=== PATIENT | female | born 1955 | race Caucasian/White ===

== ENCOUNTER → 2022-08-30 | Outpatient (CLI) | payer OTHER, SELFPAY ==
--- NOTE | 2022-08-30 07:06 | ECHOD_ITS ---
Reason For Study: Chest Pain Procedure This was a 2D Doppler, Color Flow transthoracic echocardiogram. Exam performed in department. Left Ventricle Normal LV size. Left ventricular systolic function is normal. The estimated ejection fraction is 60 %. Stage 1 diastolic dysfunction. No regional wall motion abnormalities noted. Right Ventricle Normal RV size. Normal systolic function. Atria Normal left atrium. Normal right atrium. Mitral Valve Normal mitral valve. Tricuspid Valve Normal tricuspid valve. Mild tricuspid valve insufficiency. Pulmonary artery systolic pressure is 24 mmHg. Aortic Valve Normal aortic valve. Trisinus/trileaflet aortic valve. Pulmonic Valve Normal pulmonic valve. Great Vessels Normal aortic root. The pulmonary artery is normal size. Normal inferior vena cava. Pericardium/Pleural No pericardial effusion. MMode/2D Measurements & Calculations LVIDd: 4.4 cm IVSd: 0.77 cm Ao root diam: 3.0 cm LVIDs: 2.7 cm LVPWd: 0.91 cm LA dimension: 3.1 cm RVDd: 3.2 cm FS: 38.5 % LAV(MOD-bp): 36.5 ml LA A4 area: 13.7 cm2 RA A4 area: 12.3 cm2 LAV(MOD-bp) Indexed: 20.8 ml/m2 LAV(MOD-sp2): 35.7 ml LAV(MOD-sp4): 33.4 ml Time Measurements MV dec time: 0.22 sec Doppler Measurements & Calculations MV E max ghassan: 73.9 cm/sec Lat Peak E' Ghassan: 10.8 cm/sec Med Peak E' Ghassan: 10.2 cm/sec MV A max ghassan: 96.4 cm/sec E/E' lat: 6.8 E/E' med: 7.3 MV E/A: 0.77 MV V2 max: 114.3 cm/sec MV P1/2t max ghassan: 102.0 cm/sec Ao V2 max: 126.2 cm/sec MV max P.2 mmHg MV P1/2t: 85.7 msec Ao max P.4 mmHg MV V2 mean: 62.6 cm/sec MV dec slope: 348.6 cm/sec2 Ao V2 mean: 83.5 cm/sec MV mean P.9 mmHg MVA(P1/2t): 2.6 cm2 Ao mean P.3 mmHg MV V2 VTI: 36.2 cm Ao V2 VTI: 28.1 cm LV V1 max: 106.1 cm/sec PA V2 max: 114.4 cm/sec TR max ghassan: 224.5 cm/sec LV V1 max P.5 mmHg PA V2 mean: 75.9 cm/sec TR max P.2 mmHg LV V1 mean P.3 mmHg LV V1 mean: 70.1 cm/sec LV V1 VTI: 23.1 cm ECHO/Echo Complete Interpretation Summary Normal LV size. Left ventricular systolic function is normal. The estimated ejection fraction is 60 %. Stage 1 diastolic dysfunction. Pulmonary artery systolic pressure is 24 mmHg. Ordering Physician: Ron Starr Referring Physician: Leni Baker M.D. Performed By: Oc Villagran RCS
--- NOTE | 2022-08-30 18:44 | STRESSREP ---
Stress Test Report Exercise myocardial perfusion stress test. 66-year-old lady with a history of chest pain. Stress protocol: Resting EKG demonstrates sinus bradycardia with a rate of 58 bpm normal intervals are noted resting blood pressure is 122/78 mmHg. The patient exercised according to regular Augusto protocol for total duration of 4 minutes and 16 seconds attaining a maximum heart rate of 144 bpm which was 92% of max impacted heart rate and a maximum workload of 7 metabolic equivalents. The patient maintained sinus rhythm throughout the recording. At rest there were no ST or T wave changes noted suggest ischemia and at peak exercise upsloping ST changes only were noted with did not meet the criteria for ischemia. No clinical angina was noted the test was terminated due to leg discomfort. The peak blood pressure was noted to be 160/68 mmHg. No arrhythmias were noted. Myocardial perfusion protocol. 10.9 mCi of technetium 99m sestamibi was injected at rest. The patient exercised according to regular Augusto protocol and at peak exercise 33.5 mCi of technetium 99m sestamibi was injected stress images were obtained stress and rest images were reconstructed in comparing the short axis vertical long and horizontal long axis. Gated images were also obtained to Perfusion SPECT analysis: Review of the stress images demonstrate normal uptake of tracer noted in all areas of the myocardium. The resting images similar demonstrate normal uptake of tracer noted in all areas of the myocardium. No areas of reversibility are noted suggest ischemia no previous infarct is noted. Gated SPECT analysis: The gated ejection fraction is 82%. Conclusion: Normal exercise myocardial perfusion stress test at a moderate workload. Preserved ejection fraction.
== END | disposition home or self-care (01) ==
LOC: CVS 07:05
PROVIDERS: PCP Internal Medicine; Referring Provider Internal Medicine Cardiovascular Disease; Visit Provider Internal Medicine Cardiovascular Disease
DX: R07.9 Chest pain, unspecified (principal)
CPT/HCPCS: 78452; 93017; 93306; A9500; A4216

== ENCOUNTER 2024-06-07 08:04 | Emergency (ER) | payer OTHER, SELFPAY ==
[2024-06-07 08:05] VITALS: BP 123/62; PULSE 63; RESP 16; TEMP 37.1; O2SAT 97; BMI 28.0
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
--- NOTE | 2024-06-07 09:10 | RAD_ITS ---
STUDY: X-RAY - LEFT SHOULDER REASON FOR EXAM: Female, 68 years old. Injury/Pain TECHNIQUE: 4 view(s) of the shoulder. COMPARISON: None. FINDINGS: There is mild degenerative arthrosis of the glenohumeral articulation. There is degenerative arthrosis of the acromioclavicular joint without inferior osseous spur formation. Normal acromion. Normal humeral head and visualized proximal humerus. There is periarticular soft tissue calcification consistent with a calcific tendinitis. Normal visualized pulmonary apex. RAD/Shoulder min 2 Views IMPRESSION: Calcific tendinitis. Mild degree of degenerative changes. No fracture or dislocation. Electronically Signed: Adrian Chase MD at 9:36 EDT ,
[2024-06-07 10:04] VITALS: BP 127/72; PULSE 58; RESP 14; O2SAT 97
[2024-06-07] MEDS: Acetaminophen 500 MG Tablet 1000 MG PO (10:27)
[2024-06-07 10:31] VITALS: BP 127/72; PULSE 58; RESP 14; TEMP 36.7; O2SAT 97
== END 2024-06-07 10:32 | disposition home or self-care (01) ==
PROVIDERS: Emergency Provider Emergency Medicine; PCP Internal Medicine; Visit Provider Emergency Medicine
DX: S16.1XXA Strain of muscle, fascia and tendon at neck level, initial encounter (principal); S09.90XA Unspecified injury of head, initial encounter; S40.012A Contusion of left shoulder, initial encounter; E78.5 Hyperlipidemia, unspecified; I10 Essential (primary) hypertension; V49.40XA Driver injured in collision with unspecified motor vehicles in traffic accident, initial encounter; W22.10XA Striking against or struck by unspecified automobile airbag, initial encounter; Z79.899 Other long term (current) drug therapy; Z90.710 Acquired absence of both cervix and uterus
CPT/HCPCS: 70450; 72125; 73030; 99282